=== PATIENT | female | born 1955 | race African-American/Black ===

== ENCOUNTER 2016-06-06 10:13 | Outpatient (CLI) | payer MEDICARE ==
[2016-06-06 10:52] LABS: Hemoglobin A1c 5.6 % (4.0-6.0)
[2016-06-06 10:57] LABS: ALT (SGPT) 15 U/L (0-55); AST (SGOT) 17 U/L (5-34); Alkaline Phosphatase 88 U/L (40-150); Anion Gap 15 mmol/L (10-20); BUN (Urea Nitrogen) 13 mg/dL (9.8-20.1); Bilirubin, Total 0.3 mg/dL (0.2-1.2); Calc. Creatinine Clearance 0 mL/min (70-130); Calcium 9.9 mg/dL (7.8-10.44); Carbon Dioxide 28 mmol/L (22-29); Cardiac Risk 3.9 (Less than 4.5); Chloride 101 mmol/L (98-107); Cholesterol 228 mg/dL (< 200 Desired); Estimated GFR-MDRD 85; Globulin 3.3 g/dL (2.4-3.5); Glucose 97 mg/dL (70-105); HDL Cholesterol 59 mg/dL (>60 Neg Risk); LDL Cholesterol, Calculated 149 mg/dL; Potassium 3.9 mmol/L (3.5-5.1); Protein, Total 7.3 g/dL (6.0-8.3); Sodium 140 mmol/L (136-145); Triglycerides 102 mg/dL (Less than 150)
== END 2016-06-06 10:14 | disposition home or self-care (01) ==
LOC: MADLABBHPM 10:13
PROVIDERS: ATTEND Family Medicine
DX: E78.2 Mixed hyperlipidemia (principal); I10 Essential (primary) hypertension; Z83.3 Family history of diabetes mellitus
CPT/HCPCS: 36415; 80053; 80061; 83036

== ENCOUNTER 2016-07-16 15:34 | Outpatient (CLI) | payer MEDICARE ==
--- NOTE | 2016-07-16 16:28 | RAD ---
THREE VIEWS RIGHT KNEE: History: Right knee pain. Degenerative disease. FINDINGS: AP, lateral, and oblique views of the right knee obtained. Osteophytes are seen in the medial compartment of the right knee compatible with a moderate degree o f medial compartment right knee osteoarthritis. Milder lateral and anterior compartment osteoarthri tis also seen. IMPRESSION: Right knee osteoarthritis. POS: [facility]
== END 2016-07-16 15:35 | disposition home or self-care (01) ==
LOC: MADRAD 15:34
PROVIDERS: ATTEND Family Medicine
DX: M25.561 Pain in right knee (principal); M17.11 Unilateral primary osteoarthritis, right knee

== ENCOUNTER 2017-01-27 08:19 | Outpatient (CLI) | payer MEDICARE, MEDICAID ==
[2017-01-27 09:06] LABS: ALT (SGPT) 15 U/L (8-55); AST (SGOT) 14 U/L (5-34); Albumin 3.8 g/dL (3.4-4.8); Alkaline Phosphatase 99 U/L (40-150); Bilirubin, Total 0.4 mg/dL (0.2-1.2); Calc. Creatinine Clearance 0 mL/min (70-130); Calcium 9.8 mg/dL (7.8-10.44); Cardiac Risk 4.2 (Less than 4.5); Chloride 108 mmol/L (98-107); Cholesterol 201 mg/dl (< 200 Desired); Estimated GFR-MDRD 87; Globulin 3.5 g/dL (2.4-3.5); Glucose 106 mg/dL (80-115); HDL Cholesterol 48 mg/dL (>60 Neg Risk); LDL Cholesterol, Calculated 135 mg/dL; Protein, Total 7.3 g/dL (6.0-8.3); Sodium 144 mmol/L (136-145); Triglycerides 89 mg/dL (Less than 150)
[2017-01-27 10:21] LABS: BUN (Urea Nitrogen) 11 mg/dL (9.8-20.1); Carbon Dioxide 25 mmol/L (23-31)
== END 2017-01-27 08:20 | disposition home or self-care (01) ==
LOC: MADLABBHPM 08:19
PROVIDERS: ATTEND Family Medicine
DX: E78.2 Mixed hyperlipidemia (principal); I10 Essential (primary) hypertension
CPT/HCPCS: 36415; 80053; 80061

== ENCOUNTER 2018-12-07 12:27 | Outpatient (CLI) | payer MEDICARE, MEDICAID | END 2018-12-07 12:28 | disposition home or self-care (01) | LOC: MADLABBHPM 12:27 | PROVIDERS: ATTEND Family Medicine | DX: Z01.419 Encounter for gynecological examination (general) (routine) without abnormal findings (principal) ==

== ENCOUNTER 2020-03-04 16:45 | Emergency (ER) | payer MEDICARE, MEDICAID, OTHER ==
[2020-03-05 16:33] LABS: SARS-CoV-2 MS2 Positive; SARS-CoV-2 N Gene Negative; SARS-CoV-2 S Gene Negative; SARS-CoV-2 by NAA Not Detected (NotDetected); SARS-CoV-2 orf1ab Negative
== END 2020-03-04 17:25 | disposition home or self-care (01) ==
LOC: MADERS 16:45
DX: Z20.828 Contact with and (suspected) exposure to other viral communicable diseases (principal); I10 Essential (primary) hypertension
CPT/HCPCS: 87635; 99283; U0003

== ENCOUNTER 2021-01-02 14:13 | Outpatient (CLI) | payer MEDICARE, MEDICAID | END 2021-01-02 14:14 | disposition home or self-care (01) | LOC: MADRAD 14:13 | PROVIDERS: ATTEND Family Medicine | DX: M54.5 Low back pain (principal); M47.816 Spondylosis without myelopathy or radiculopathy, lumbar region | CPT/HCPCS: 72100 ==

== ENCOUNTER 2021-05-16 10:44 | Emergency (ER) | payer MEDICARE, MEDICAID ==
[2021-05-18 07:45] LABS: SARS-CoV-2 PCR by NAA DETECTED (NotDetected)
== END 2021-05-16 11:24 | disposition home or self-care (01) ==
LOC: MADERS 10:44
DX: U07.1 COVID-19 (principal)
CPT/HCPCS: U0003; U0005; 99283

== ENCOUNTER 2021-07-14 20:03 | Emergency (ER) | payer OTHER, MEDICARE, MEDICAID ==
[2021-07-14] MEDS ORDERED: Lidocaine 1%/Epinephrine 1:100K 10 ML VIAL ONE (20:19)
[2021-07-14] MEDS ORDERED: Bacitracin 1 PK ONE (21:20)
== END 2021-07-14 21:23 | disposition home or self-care (01) ==
LOC: MADERS 20:03
DX: S01.81XA Laceration without foreign body of other part of head, initial encounter (principal); I10 Essential (primary) hypertension; V49.49XA Driver injured in collision with other motor vehicles in traffic accident, initial encounter; W22.10XA Striking against or struck by unspecified automobile airbag, initial encounter; Z79.899 Other long term (current) drug therapy
CPT/HCPCS: 12052; 70450; 72125

== ENCOUNTER 2021-07-19 16:02 | Outpatient (CLI) | payer MEDICARE, MEDICAID | END 2021-07-19 16:03 | disposition home or self-care (01) | LOC: MADRAD 16:02 | PROVIDERS: ATTEND Family Medicine | DX: M25.512 Pain in left shoulder (principal) ==

== ENCOUNTER 2021-07-26 10:56 | Outpatient (CLI) | payer OTHER, MEDICARE, MEDICAID | END 2021-07-26 10:57 | disposition home or self-care (01) | LOC: MADRAD 10:56 | PROVIDERS: ATTEND Family Medicine | DX: S20.219D Contusion of unspecified front wall of thorax, subsequent encounter (principal); R07.81 Pleurodynia; V89.2XXA Person injured in unspecified motor-vehicle accident, traffic, initial encounter | CPT/HCPCS: 71046 ==

== ENCOUNTER 2024-03-28 10:20 | Emergency (ER) | payer OTHER ==
[2024-03-28] MEDS ORDERED: Mag-Al 1200 mg/1200 mg/30 ML UDCUP ONE (11:17)
[2024-03-28] MEDS ORDERED: Lidocaine Viscous Sol 2% 15 ml UD Cup ONE (11:18)
[2024-03-28] MEDS ORDERED: Sodium Chloride 0.9% 1,000 ML ONE (11:18)
[2024-03-28 11:29] LABS: Hematocrit 39.7 % (36.0-47.0); Hemoglobin 12.1 g/dL (12.0-16.0); Mean Corpuscular HGB CONC 30.6 g/dL (32.0-36.0); Mean Corpuscular Hemoglobin 26.9 pg (27.0-31.0); Mean Corpuscular Volume 88.1 fl (78.0-98.0); Mean Platelet Volume 8.2 fL (7.4-10.4); Platelet Count 265 10x3/uL (130-400); RBC Distribution Width 13.4 % (11.5-14.5); White Blood Cell (WBC) Count 10.7 10x3/uL (4.8-10.8)
[2024-03-28 11:45] LABS: MDiff Complete? YES; Manual Diff?? YES; Neutrophil 82 % (42-75)
[2024-03-28 11:46] LABS: Anisocytosis SLIGHT = 6-15 cells (100X) (0-5/hpf); Eosinophils 2 % (0-10); Hypochromia MODERATE=16-30 cells (100X) (0-5/hpf); Lymphocytes 5 % (21-51); Monocytes 5 % (0-10); Poikilocytosis SLIGHT = 6-15 cells (100X) (0-5/hpf); Reactive Lymphocytes 6 % (0-10)
[2024-03-28 11:47] LABS: Platelet Adequacy Comment Appears Adequate
[2024-03-28 11:57] LABS: ALT (SGPT) 11 U/L (8-55); AST (SGOT) 14 U/L (5-34); Albumin 3.6 g/dL (3.4-4.8); Alkaline Phosphatase 96 U/L (40-110); Anion Gap 12 mmol/L (10-20); BUN (Urea Nitrogen) 9 mg/dL (9.8-20.1); Bilirubin, Total 0.4 mg/dL (0.2-1.2); Calc. Creatinine Clearance 0 mL/min (70-130); Calcium 9.8 mg/dL (7.8-10.44); Carbon Dioxide 24 mmol/L (23-31); Chloride 110 mmol/L (98-107); Estimated GFR 74; Globulin 3.3 g/dL (2.4-3.5); Glucose 104 mg/dL (80-115); Potassium 3.8 mmol/L (3.5-5.1); Protein, Total 6.9 g/dL (5.8-8.1); Sodium 142 mmol/L (136-145)
[2024-03-28 12:10] LABS: Troponin I Less than 0.010 ng/mL (< 0.028)
== END 2024-03-28 12:55 | disposition home or self-care (01) ==
LOC: MADERS 10:20
DX: R51.9 Headache, unspecified (principal); I10 Essential (primary) hypertension; Z79.899 Other long term (current) drug therapy
CPT/HCPCS: 36415; 80053; 83880; 84484; 85025; 87400; 93005; 99284; J7030

== ENCOUNTER 2024-07-22 14:01 | Outpatient (CLI) | payer OTHER | END 2024-07-22 14:02 | disposition home or self-care (01) | LOC: MADLAB 14:01 | PROVIDERS: ATTEND Family Medicine | DX: R09.89 Other specified symptoms and signs involving the circulatory and respiratory systems (principal); I51.7 Cardiomegaly | CPT/HCPCS: 71046 ==

== ENCOUNTER 2024-12-28 10:18 | Emergency (ER) | payer OTHER ==
[2024-12-28] MEDS ORDERED: cloNIDine 0.1 MG TAB ONE (10:59)
== END 2024-12-28 12:50 | disposition home or self-care (01) ==
LOC: MADERS 10:18
DX: I10 Essential (primary) hypertension (principal); R51.9 Headache, unspecified; E78.5 Hyperlipidemia, unspecified; Z79.899 Other long term (current) drug therapy
CPT/HCPCS: 70450

== ENCOUNTER 2025-05-08 20:27 | Emergency (ER) | payer OTHER ==
[2025-05-08] MEDS ORDERED: Ondansetron PF 4 MG/2 ML Vial ONE (21:16)
[2025-05-08 21:29] LABS: #Basophils 0.1 thou/uL (0.0-0.2); #Eosinophils 0.2 thou/uL (0.0-0.7); #Lymphocytes 2.1 thou/uL (1.20-3.40); #Monocytes 0.4 thou/uL (0.11-0.59); #Neutrophils 2.5 thou/uL (1.40-6.50); %Basophils 1.4 % (0.0-1.0); %Eosinophils 4.3 % (0.0-10.0); %Lymphocytes 39.8 % (21.0-51.0); %Monocytes 8.0 % (0.0-10.0); %Neutrophils 46.5 % (42.0-75.0); Anisocytosis SLIGHT = 6-15 cells (100X) (0-5/hpf); Hematocrit 41.7 % (36.0-47.0); Hemoglobin 12.5 g/dL (12.0-16.0); MDiff Complete? YES; Mean Corpuscular Hemoglobin 26.1 pg (27.0-31.0); Mean Corpuscular Volume 87.1 fl (78.0-98.0); Platelet Count 229 10x3/uL (130-400); Poikilocytosis SLIGHT = 6-15 cells (100X) (0-5/hpf); Red Blood Cell (RBC) Count 4.78 mill/uL (4.20-5.40); White Blood Cell (WBC) Count 5.3 10x3/uL (4.8-10.8)
[2025-05-08 21:35] LABS: ALT (SGPT) 9 U/L (Less than 34); AST (SGOT) 18 U/L (11-34); Albumin 3.9 g/dL (3.1-4.5); Alkaline Phosphatase 79 U/L (40-110); Anion Gap 15 mmol/L (10-20); BUN (Urea Nitrogen) 19 mg/dL (9.8-20.1); Bilirubin, Total 0.3 mg/dL (0.3-1.2); Calc. Creatinine Clearance 0 mL/min (70-130); Calcium 9.6 mg/dL (7.8-10.44); Carbon Dioxide 24 mmol/L (23-31); Chloride 106 mmol/L (98-107); Globulin 3.3 g/dL (2.4-3.5); Glucose 110 mg/dL (80-115); Potassium 3.4 mmol/L (3.5-5.1); Sodium 142 mmol/L (136-145); Troponin I Less than 0.010 ng/mL (< 0.028)
== END 2025-05-08 22:20 | disposition home or self-care (01) ==
LOC: MADERS 20:27
DX: K52.9 Noninfective gastroenteritis and colitis, unspecified (principal); E87.6 Hypokalemia; E86.9 Volume depletion, unspecified; I10 Essential (primary) hypertension; E78.5 Hyperlipidemia, unspecified; Z79.899 Other long term (current) drug therapy
CPT/HCPCS: 80053; 84484; 85025; 96361; 96374; J2405; J7030; Q0162